=== PATIENT | female | born 1970 | race Caucasian/White ===

== ENCOUNTER 2023-05-22 01:33 | Emergency (ER) | payer OTHER, BC | END 2023-05-22 02:01 | disposition home or self-care (01) | LOC: MADERS 01:33 | DX: S61.411A Laceration without foreign body of right hand, initial encounter (principal); F17.210 Nicotine dependence, cigarettes, uncomplicated; I10 Essential (primary) hypertension; W54.0XXA Bitten by dog, initial encounter | CPT/HCPCS: 99283 ==